=== PATIENT | female | born 1970 | race Hispanic/Latino ===

== ENCOUNTER → 2017-08-16 | Outpatient (CLI) | payer BC ==
[2017-08-16 15:27] LABS: BASOPHILS % (AUTO) 0.4 % (0.0-5.0); EOSINOPHILS % (AUTO) 1.4 % (0.0-8.0); HEMATOCRIT 37.9 % (36-48); MEAN CORPUSCULAR HEMOGLOBIN 31.5 pg (27.0-33.0); MEAN CORPUSCULAR HGB CONC 33.9 g/dL (32.0-36.0); MEAN CORPUSCULAR VOLUME 92.9 fL (79-99); MONOCYTES % (AUTO) 7.1 % (3.0-13.0); NEUTROPHILS % (AUTO) 52.1 % (40.0-77.0); NUCLEATED RED BLOOD CELLS 0.1 % (0.0-0.19); PLATELET COUNT (AUTO) 300 K/uL (130-400); RED BLOOD CELL COUNT(AUTO) 4.08 MIL/uL (4.00-5.50); RED CELL DISTRIBUTION WIDTH 12.3 % (11.0-15.5); WHITE BLOOD COUNT (AUTO) 7.6 K/uL (4.8-10.8)
[2017-08-16 15:29] LABS: APPEARANCE,URINE Clear (CLEAR); BILIRUBIN,URINE Negative (NEGATIVE); COLOR,URINE Yellow (YELLOW); GLUCOSE, URINE (UA) Negative (NEGATIVE); KETONES,URINE Negative (NEGATIVE); LEUKOCYTE ESTERASE ,URINE Negative (NEGATIVE); NITRATE,URINE Negative (NEGATIVE); OCCULT BLOOD,URINE Negative (NEGATIVE); PH,URINE 7.5 (5.0-8.0); PROTEIN,URINE Negative (NEGATIVE)
[2017-08-16 15:43] LABS: ALBUMIN 3.6 g/dL (3.5-5.0); BILIRUBIN,TOTAL 0.2 mg/dL (0.2-1.0); CREATININE 0.6 mg/dL (0.5-1.5); POTASSIUM 3.6 mmol/L (3.5-5.1); TOTAL PROTEIN, SERUM 7.5 g/dL (6.0-8.3)
== END | disposition home or self-care (01) ==
LOC: LAB 14:44
PROVIDERS: ATTEND Family Medicine
DX: R10.9 Unspecified abdominal pain (principal); Z80.51 Family history of malignant neoplasm of kidney; Z84.1 Family history of disorders of kidney and ureter
CPT/HCPCS: 36415; 80053; 81003; 85025; 87088

== ENCOUNTER → 2017-08-24 | Outpatient (CLI) | payer BC ==
[~2017-08-24] MED LIST: IOPAMIDOL-370 75 ML VIAL IV ONE
== END | disposition home or self-care (01) ==
LOC: RAH 07:55
PROVIDERS: ATTEND Family Medicine
DX: R10.9 Unspecified abdominal pain (principal); Z84.1 Family history of disorders of kidney and ureter; Z80.51 Family history of malignant neoplasm of kidney
CPT/HCPCS: 74178; Q9967

== ENCOUNTER → 2017-10-31 | Outpatient (CLI) | payer BC | END | disposition home or self-care (01) | LOC: OIH 11:24 | PROVIDERS: ATTEND Family Medicine | DX: M54.6 Pain in thoracic spine (principal); R07.9 Chest pain, unspecified | CPT/HCPCS: 71046; 72070 ==

== ENCOUNTER → 2018-11-22 | Outpatient (CLI) | payer BC | END | disposition home or self-care (01) | LOC: RAH 14:24 | PROVIDERS: ATTEND Physical Medicine & Rehabilitation | DX: M54.12 Radiculopathy, cervical region (principal) | CPT/HCPCS: 72052 ==